=== PATIENT | male | born 1940 | race Caucasian/White ===

== ENCOUNTER 2017-03-23 10:50 | Day surgery (SDC) | payer MEDICAID, OTHER ==
[~2017-03-23] VITALS: Ht 157.5 cm; Wt 65.5 kg
[~2017-03-23 10:50] MED LIST: ALLO100T PO; AMLO-512 PO; ASPI-1188 PO; ATEN50TA PO; CYAN250010 PO; DIPH25 PO; GABA-533 PO; LISI-662 PO; OMEP20 PO; SIMV-260 PO; XALA2.5OS OU
[2017-03-23] MEDS ORDERED: LIDOCAINE HCL/PF 2% 5 ML SYRINGE IVP ONE (10:51)
[2017-03-23] MEDS ORDERED: LIDOCAINE HCL/PF 2% 5 ML VIAL IM ONE (10:51)
[2017-03-23] MEDS ORDERED: SODIUM CHLORIDE 0.9% 1,000 ML IV ONE ×2 (10:59→11:00)
[2017-03-23] MEDS ORDERED: LISI40TA4 PO (11:33)
[2017-03-23] MEDS ORDERED: HYDR-309 PO (11:39)
[2017-03-23] MEDS ORDERED: CALC-1085 PO (11:39)
[2017-03-23] MEDS ORDERED: VITAD1000 PO (11:39)
[2017-03-23] MEDS ORDERED: TAMS0.4C32 PO (11:39)
[2017-03-23] MEDS ORDERED: CILO100T PO (11:39)
== END 2017-03-23 15:50 | disposition home or self-care (01) ==
LOC: SURGERY 10:50
PROVIDERS: ATTEND Internal Medicine Gastroenterology
DX: K44.9 Diaphragmatic hernia without obstruction or gangrene (principal); R19.4 Change in bowel habit; L53.8 Other specified erythematous conditions; K29.60 Other gastritis without bleeding; K21.9 Gastro-esophageal reflux disease without esophagitis; F03.90 Unspecified dementia, unspecified severity, without behavioral disturbance, psychotic disturbance, mood disturbance, and anxiety; E78.5 Hyperlipidemia, unspecified; I10 Essential (primary) hypertension; M19.90 Unspecified osteoarthritis, unspecified site; Z98.890 Other specified postprocedural states; Z87.891 Personal history of nicotine dependence; Z79.82 Long term (current) use of aspirin; Z79.891 Long term (current) use of opiate analgesic; Z79.899 Other long term (current) drug therapy
CPT/HCPCS: 43239; 45378; 93005; J3490 ×2; J7030; 88305; 88312